=== PATIENT | female | born 1935 | race Caucasian/White ===

== ENCOUNTER 2019-09-16 10:06 | Day surgery (SDC) | payer MEDICARE, OTHER ==
[~2019-09-16] VITALS: Ht 157.5 cm; Wt 70.6 kg
[~2019-09-16 10:06] MED LIST: ASPI-515 PO; ATOR20TA PO; CETI10TA26 PO; CHOL10003 PO; CYCL1DRO EACHEYE; ESTR1TAB5 PO; FLAX1CAP PO; LATA2.5D3 EACHEYE; LISI5TAB7 PO; MULT-516 PO; OM-31CAP8 PO; [UNRECOGNIZED DRUG - CODE] PO; [UNRECOGNIZED DRUG - OTHER] EACHEYE; [UNRECOGNIZED DRUG - OTHER] PO
[2019-09-16] MEDS ORDERED: LACTATED RINGERS 1,000 ML IV SCH (11:19)
[2019-09-16] MEDS ORDERED: LISI40TA PO (11:22)
[2019-09-16] MEDS ORDERED: ATOR40TA78 PO (11:22)
[2019-09-16] MEDS ORDERED: CARV6.252 PO (11:26)
[2019-09-16] MEDS ORDERED: ACET-1600 PO (11:26)
[2019-09-16] MEDS ORDERED: VITA400C43 PO (11:26)
[2019-09-16] MEDS ORDERED: CYAN50003 PO (11:26)
[2019-09-16] MEDS ORDERED: UBID100C24 PO (11:26)
[2019-09-16] MEDS ORDERED: PROPOFOL 10 MG/ML, 20ML ONE ×3 (11:28→13:12)
[2019-09-16] MEDS ORDERED: LIDOCAINE-MPF 2% ,5ML ONE ×2 (11:28)
[2019-09-16 11:49] VITALS: BP 170/82
== END 2019-09-16 15:15 | disposition home or self-care (01) ==
LOC: OUT 10:06
PROVIDERS: ATTEND Internal Medicine Geriatric Medicine
DX: C49.A5 Gastrointestinal stromal tumor of rectum (principal); I42.9 Cardiomyopathy, unspecified; I10 Essential (primary) hypertension; E78.5 Hyperlipidemia, unspecified; Z79.82 Long term (current) use of aspirin; Z79.899 Other long term (current) drug therapy; Z87.891 Personal history of nicotine dependence; Z88.5 Allergy status to narcotic agent; Z88.8 Allergy status to other drugs, medicaments and biological substances; Z90.49 Acquired absence of other specified parts of digestive tract; Z85.828 Personal history of other malignant neoplasm of skin; Z98.890 Other specified postprocedural states
CPT/HCPCS: 45391; 93005; J2704; J7120